=== PATIENT | female | born 1990 | race African-American/Black ===

== ENCOUNTER 2016-12-15 14:37 | Emergency (ER) | payer OTHER ==
[2016-12-15 14:41] VITALS: BP 122/72; PULSE 94; TEMP 98.5; BMI 39.9
--- NOTE | 2016-12-15 15:21 | PDOC ---
History of Present Illness - General Chief Complaint: Pain Stated Complaint: ABDOMINAL PAIN/10WKS PREGANT Time Seen by Provider: 12/15/16 15:02 History Source: Patient Exam Limitations: No Limitations - History of Present Illness Initial Comments: CHIEF COMPLAINT: 26 y/o afebrile , approximately 10 week female with LMP 10/04/16 c/o intermittent lower abdominal pain today. HISTORY OF PRESENT ILLNESS: The patient states she had this pain a few days ago and her YARN MAN told her it was probably her uterus stretching. She states it did stop but started again today so she got nervous. She denies f/c, n/v/d, CP, SOB, back pain, flank pain, hematuria, dysuria, vaginal bleeding, abnormal vaginal discharge. Vital signs on arrival are within normal limits. REVIEW OF SYSTEMS: GENERAL/CONSTITUTIONAL: No fever/chills. No weakness. No weight change. HEAD, EYES, EARS, NOSE AND THROAT: No change in vision. No ear pain or discharge. No sore throat. CARDIOVASCULAR: No chest pain or shortness of breath. RESPIRATORY: No cough, wheezing, or hemoptysis. GASTROINTESTINAL: +abd pain. No nausea, vomiting, diarrhea, constipation. GENITOURINARY: No dysuria, frequency, or change in urination. MUSCULOSKELETAL: No joint or muscle swelling or pain. No neck or back pain. SKIN: No rash or easy bruising. NEUROLOGIC: No headache, vertigo, loss of consciousness, or loss of sensation. PHYSICAL EXAM: GENERAL: The patient is awake, alert, and fully oriented, in no acute distress. She is well appearing, ambulatory, in NAD or obvious discomfort. HEAD: Normal with no signs of trauma. ENT: Pupils equal, round and reactive to light, extraocular movements intact, sclera anicteric, conjunctiva clear. Neck supple. LUNGS: Clear to auscultation bilaterally. Normal excursion. No respiratory distress or use of accessory muscles. CV: RRR, S1/S2, no MRG. Cap refill < 2 sec. ABDOMEN: Soft, non-distended, TTP of suprapubic region. EXTREMITIES: Normal range of motion, no edema. NEUROLOGICAL: Normal speech, normal gait. CN II-XII grossly intact. PSYCH: Normal mood, normal affect. SKIN: Warm, dry, normal turgor, no rashes or lesions noted. Past History - Past Medical History Allergies/Adverse Reactions: Allergies Allergy/AdvReac Type Severity Reaction Status Date / Time acetaminophen Allergy Severe Difficulty Verified 12/15/16 14:39 Breathing diphenhydramine HCl Allergy Severe Difficulty Verified 12/15/16 14:39 [From Benadryl] Breathing Penicillins Allergy Severe Difficulty Verified 12/15/16 14:39 Breathing Home Medications: Ambulatory Orders Folic Acid - 1 mg PO DAILY #30 tablet 11/17/16 Pnv95/Ferrous Fumarate/FA [ Caplet] 1 each PO DAILY 11/17/16 Asthma: Yes - Reproductive History (#): 1 Para: 0 Therapeutic (s) & number: No Spontaneous : 0 - Psycho/Social/Smoking Cessation Hx Anxiety: No Suicidal Ideation: No Smoking History: Current every day smoker Have you smoked in the past 12 months: No Number of Cigarettes Smoked Daily: 2 Information on smoking cessation initiated: No Hx Alcohol Use: No Drug/Substance Use Hx: No Substance Use Type: None *Physical Exam - Vital Signs Last Vital Signs Temp Pulse Resp BP Pulse Ox 98.5 F 94 H 18 122/72 100 12/15/16 14:39 12/15/16 14:39 12/15/16 14:39 12/15/16 14:39 12/15/16 14:39 ED Treatment Course - LABORATORY CBC & Chemistry Diagram: 12/15/16 15:24 12/15/16 15:24 - RADIOLOGY Radiology Studies Ordered: Category Date Time Status TRANSVAGINAL US PREG [US] Stat Ultrasound 12/15/16 15:04 Ordered Medical Decision Making - Medical Decision Making A/P: 26 y/o afebrile, 10 week female c/o lower abd pain today. Plan is as follows: 1. labs 2. UA/culture 3. Transvaginal ultrasound Transvaginal Ultrasound IMPRESSION: There is a single live intrauterine . pole and yolk sac are seen. Estimated gestational age is 10 weeks and 1 day. heart rate is 156 beats per minute. The cervix is closed. There is no free fluid. Ovary dimensions are 2.8 x 1.7 x 1.6 cm for the right ovary and 3.6 x 2.0 x 2.0 cm for the left ovary. Blood flow is demonstrated to both maternal ovaries. Labs normal. UA normal. Gave the patient all of her results. Suggested her YARN MAN may be correct in thinking her pain is just her uterus expanding. Suggested she f/u with her OB/ BUSINESS INFORMATION ANALYST and return to the ER with any worsening or concerning symptoms. The patient verbalizes understanding of all instructions, has no further questions and is awaiting discharge. *DC/Admit/Observation/Transfer Diagnosis at time of Disposition: Abdominal pain affecting - Discharge Dispostion Disposition: HOME Condition at time of disposition: Good - Referrals Referrals: Noemy Chase [Primary Care Provider] - - Patient Instructions Printed Discharge Instructions: DI for Abdominal Pain -- Early Additional Instructions: Discharge Instructions: -Follow up with your YARN MAN on Saturday -Return to the ER with any worsening or concerning symptoms
[2016-12-15 15:35] LABS: URINE APPEARANCE CLEAR; URINE BILIRUBIN NEGATIVE (NEGATIVE); URINE BLOOD NEGATIVE (NEGATIVE); URINE COLOR LTYELLOW; URINE GLUCOSE (UA) NEGATIVE (NEGATIVE); URINE KETONE NEGATIVE (NEGATIVE); URINE LEUK ESTERASE NEGATIVE (NEGATIVE); URINE NITRITE NEGATIVE (NEGATIVE); URINE PROTEIN NEGATIVE (NEGATIVE); URINE UROBILINOGEN NEGATIVE E.U./dl (0.2-1.0)
[2016-12-15 15:37] LABS: BASOPHIL 1.2 % (0-2.0); EOSINOPHIL 1.3 % (0-4.5); MCH 27.2 pg (25.7-33.7); MCHC 32.7 g/dl (32.0-36.0); MEAN CELL VOLUME 83.2 fl (80-96); MEAN PLT VOLUME 7.6 fl (7.5-11.1); NEUTROPHILS 68.1 % (42.8-82.8); PLATELET COUNT 346 K/MM3 (134-434); RDW 14.3 % (11.6-15.6); WHITE BLOOD COUNT 14.3 K/mm3 (4.0-10.0)
[2016-12-15 16:11] LABS: ALBUMIN 3.7 g/dl (3.4-5.0); ANION GAP 10 (8-16); BILIRUBIN,TOTAL 0.4 mg/dL (0.2-1.0); CO2 23 mmol/L (21-32); CREATININE 0.5 mg/dL (0.55-1.02); GLUCOSE,RANDOM 83 mg/dL (74-106); SGOT/AST 12 U/L (15-37); SGPT/ALT 24 U/L (12-78); TOT PROT 7.2 g/dl (6.4-8.2)
[2016-12-15 16:26] LABS: ALK PHOS 58 U/L (45-117)
== END 2016-12-15 18:04 | disposition home or self-care (01) ==
LOC: JER 14:37
DX: O26.891 Other specified pregnancy related conditions, first trimester (principal); R10.30 Lower abdominal pain, unspecified; Z3A.10 10 weeks gestation of pregnancy
CPT/HCPCS: 36415; 76817-TC; 80053; 81003; 84702; 85025; 86850; 86900; 86901; 87086; 99283-25

== ENCOUNTER 2020-09-11 13:35 | Emergency (ER) | payer OTHER ==
[2020-09-11 13:44] VITALS: BP 137/75; PULSE 84; TEMP 98; BMI 38.7
[2020-09-11] MEDS ORDERED: IBUPROFEN 400 MG TABLET (FP) PO ONE ×2 (14:25→14:33)
--- OUTSIDE RECORDS SUMMARY | 2020-09-11 14:27 | XMS ---
:1990 Author Organization [facility] Support Name Relationship Address Phone [employer] [employer] Unavailable [address] [place] [address] MELISSA SMART MOTHER [address] [place] [address] Re-disclosure Warning The records that you are about to access may contain information from federally- assisted alcohol or drug abuse programs. If such information is present, then the following federally mandated warning applies: This information has been disclosed to you from records protected by federal confidentiality rules (42 CFR part 2). The federal rules prohibit you from making any further disclosure of this information unless further disclosure is expressly permitted by the written consent of the person to whom it pertains or as otherwise permitted by 42 CFR part 2. A general authorization for the release of medical or other information is NOT sufficient for this purpose. The Federal rules restrict any use of the information to criminally investigate or prosecute any alcohol or drug abuse patient.The records that you are about to access may contain highly sensitive health information, the redisclosure of which is protected by Article 27-F of the [facility] Public Health law. If you continue you may haveaccess to information: Regarding HIV / AIDS; Provided by facilities licensed or operated by the [facility] Office of Mental Health; or Provided by the [facility] Office for People With Developmental Disabilities. If such information is present, then the following [facility] mandated warning applies: This information has been disclosed to you from confidential records which are protected by state law. State law prohibits you from making any further disclosure of this information without the specific written consent of the person to whom it pertains, or as otherwise permitted by law. Any unauthorized further disclosure in violation of state law may result in a fine or mcc sentence or both. A general authorization for the release of medical or other information is NOT sufficient authorization for further disclosure. Insurance Providers Payer name Policy type Policy ID Covered Covered republican's Policy P saundra / Coverage republican ID relationship to Michaud Inf ormation type michaud [facility] [place]ICA[place] [id number] [place] [id number] HMO PENDING WC/NF [id number] SP [id number] ONLY MEDICAID [id number] SP [id number] [facility] [place]ICA[place] [id number] [place] [id number] HMO SELF PAY SP INSURANCE
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
== END 2020-09-11 14:55 | disposition home or self-care (01) ==
LOC: JERFT 13:35
DX: S89.91XA Unspecified injury of right lower leg, initial encounter (principal); S00.83XA Contusion of other part of head, initial encounter
CPT/HCPCS: 73562-TC-RT-FY; 99283-25; C9803; U0003

== ENCOUNTER 2021-09-02 15:31 | Emergency (ER) | payer OTHER ==
[2021-09-02 15:57] VITALS: BP 124/77; PULSE 89; TEMP 97.2; BMI 39.9
[2021-09-02] MEDS ORDERED: CLINDAMYCIN HCL 150 MG CAPSULE (FP) PO ONE (16:28)
[2021-09-02] MEDS ORDERED: IBUPROFEN 400 MG TABLET (FP) PO ONE ×2 (16:28→16:31)
[2021-09-02] MEDS ORDERED: CLINDAMYCIN HCL 150 MG CAPSULE (FP) ONE (16:31)
== END 2021-09-02 16:40 | disposition home or self-care (01) ==
LOC: JER 15:31
DX: K02.9 Dental caries, unspecified (principal); K05.329 Chronic periodontitis, generalized, unspecified severity
CPT/HCPCS: 99283-25